=== PATIENT | male | born 1990 | race African-American/Black ===

== ENCOUNTER 2017-05-04 18:47 | Emergency (ER) | payer OTHER ==
[2017-05-04] MEDS ORDERED: ORPHENADRINE CITRATE 60 MG/2ML IM ONE (19:14)
[2017-05-04] MEDS ORDERED: KETOROLAC TROMETHAMINE 60 MG/2 ML VIAL IM ONE (19:14)
[2017-05-04 19:31] VITALS: BP 113/69
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
== END 2017-05-04 19:45 | disposition home or self-care (01) ==
LOC: ED 18:47
DX: M25.511 Pain in right shoulder (principal); M25.551 Pain in right hip; V89.2XXA Person injured in unspecified motor-vehicle accident, traffic, initial encounter
CPT/HCPCS: J1885; J2360; 96372; 99283

== ENCOUNTER 2017-10-31 12:32 | Emergency (ER) | payer OTHER ==
[2017-10-31] MEDS ORDERED: AZITHROMYCIN 250 MG TABLET PO ONE (13:24)
[2017-10-31] MEDS ORDERED: cefTRIAXone SODIUM 1 GM VIAL IM ONE (13:24)
[2017-10-31] MEDS ORDERED: Lidocaine 1% 5ml(IM or SUTURE)(PAIN CLINIC) IJ ONE (13:25)
--- NOTE | 2017-10-31 13:32 | ED Physician Documentation ---
Male Genitourinary Problems - HISTORIAN Historian: patient - HPI Stated Complaint: STD Check Chief Complaint: Male Urogenital Problems Additional Information: burning w/urination-no discharge onset 1 week-girlfriend had GC Onset: days ago (4-5 days) Duration: continues in ED Context: denies: drug use, lifting, trauma, recent surgery Severity: mild Further Comments: yes (pt relates had chlamydia in past sy now similar) - Associated Symptoms Problems Urinating: discomfort w/ urination, burning w/ urination, pain w/ urination. denies: blood in urine, frequent urination, urgency w/ urination Penile Discharge Descripiton: other (none) Testicular Pain: none Testicular Swelling: none Penile Pain: Yes (only when urinates-admits little water po) Inguinal Mass: No Abdominal Pain: none - Sexual History Sexual History: unprotected intercourse, known exp. to STD - ROS CONST: no problems GI/: denies: nausea, vomiting, abdominal pain, problems urinating (just the burning) MS/SKIN/LYMPH: none CVS/RESP: none NEURO/PSYCH: denies: fainting, dizziness, tingling, anxiety, depression - PAST HX Past History: other (GG) Cardiac Disease: none Surgeries/Procedures: none Immunizations: UTD Allergies/Adverse Reactions: Allergies Allergy/AdvReac Type Severity Reaction Status Date / Time No Known Allergies Allergy Verified 10/31/17 12:41 Home Medications: Ambulatory Orders Medication Instructions Recorded NK [NK] 10/31/17 - SOCIAL HX Smoking History: cigarettes Alcohol Use: occasionally Drug Use: none - FAMILY HX Family History: none - VITAL SIGNS Vital Signs: Vital Signs Temp Pulse Resp BP Pulse Ox 72 18 146/84 99 10/31/17 12:35 10/31/17 12:35 10/31/17 12:35 10/31/17 12:35 - REVIEWED ASSESSMENTS Nursing Assessment Reviewed: Yes Vitals Reviewed: Yes ED Results Lab/Radiology - Orders Orders: ED Orders Category Date Time Status CHLAMYDIA & GONORRHOEAE Stat Lab 10/31/17 Ordered UA [URINALYSIS] Routine Lab 10/31/17 Ordered Azithromycin [Zithromax] Med 10/31/17 13:24 Discontinued 1,000 mg PO NOW ONE Lidocaine 1% 5ml(IM or SUTURE) [Xylocaine] Med 10/31/17 13:25 Discontinued 50 mg IJ NOW ONE cefTRIAXone SODIUM [Rocephin] Med 10/31/17 13:24 Discontinued 1 gm IM NOW ONE Male Genitourinary Problems - EXAM General Appearance: no acute distress. No: anxious, lethargic Abdomen: non-tender Genitals: nml inspection, testicles nml palp., circumcised, examined while standing. No: urethral discharge, testicular tenderness, epididymal tenderness , scrotal swelling, hernia mass, herpes-like lesion(s), inguinal lymphadenopathy Neck: nml inspection. No: lymphadenopathy Respiratory: no resp distress, chest non-tender, breath sounds normal CVS: reg rate & rhythm, heart sounds normal Extremities: normal range of motion, non-tender, normal inspection Neuro/Psych: oriented X3, motor nml, sensation nml, mood/affect nml, cognition normal. No: depressed mood/affect Skin: warm/dry, normal color. No: cyanosis, diaphoresis Discharge Clincal Impression: POSSIBLE std Referrals: Yazmin Wahl MD [Primary Care Provider] - 2 Days Condition: Good Disposition: 01 HOME, SELF-CARE Decision to Admit: NO Decision Time: 13:38
[2017-10-31 13:43] VITALS: BP 130/80
[2017-11-02 07:27] LABS: APPEARANCE,URINE CLEAR (CLEAR); COLOR,URINE YELLOW (YELLOW); OCCULT BLOOD,URINE NEGATIVE (NEGATIVE); PH URINE 6.5 (5.0 - 8.0); UROBILINOGEN URINE 0.2 Eu (0.2-1.0)
== END 2017-10-31 13:42 | disposition home or self-care (01) ==
LOC: ED 12:32
DX: A56.8 Sexually transmitted chlamydial infection of other sites (principal)
CPT/HCPCS: 81002; 87491; 87591; 99282; J0696

== ENCOUNTER 2017-11-27 19:23 | Emergency (ER) | payer SELFPAY ==
[2017-11-27 19:44] VITALS: BP 125/73
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
--- NOTE | 2017-11-27 20:07 | Diagnostic Imaging Report ---
DONTRELL VALDES [facility] [address] [facility] [address] [address] Report Submission Date: Nov 27, 2017 7:59:50 PM [employer] Patient Study Name: GLORY WELLER Date: Nov 27, 2017 7:40:49 PM [employer] Modality Type: CR Gender: M Description: UPPER EXTREMITY : 86 Institution: [facility] Physician: DONTRELL VALDES Left hand 3 views Clinical history: Injury with pain in the left 5th finger There is an oblique fracture of the mid shaft of the left 5th metacarpal, bony fragments are in reasonable position. Impression : An oblique fracture of the midshaft of left 5th metacarpal Electronically signed on Nov 27, 2017 7:59:50 PM [employer] by: Rusty LAMAR
== END 2017-11-27 20:11 | disposition home or self-care (01) ==
LOC: ED 19:23
DX: S62.357A Nondisplaced fracture of shaft of fifth metacarpal bone, left hand, initial encounter for closed fracture (principal); W22.8XXA Striking against or struck by other objects, initial encounter; Y93.9 Activity, unspecified; Y92.9 Unspecified place or not applicable
CPT/HCPCS: 73130; L3908; 99283